=== PATIENT | male | born 1985 | race African-American/Black ===

== ENCOUNTER 2023-07-25 04:38 | Emergency (ER) | payer SELFPAY ==
[2023-07-25] MEDS ORDERED: Ketorolac Tromethamine 30 MG/ML VIAL ONE (05:15)
[2023-07-25] MEDS ORDERED: Acetaminophen 500 MG TAB ONE (05:15)
== END 2023-07-25 06:08 | disposition home or self-care (01) ==
LOC: CSHERS 04:38
DX: R51.9 Headache, unspecified (principal); F43.20 Adjustment disorder, unspecified; I10 Essential (primary) hypertension; F17.210 Nicotine dependence, cigarettes, uncomplicated; Z79.899 Other long term (current) drug therapy
CPT/HCPCS: 96372; 99283; J1885